=== PATIENT | male | born 1945 | race Caucasian/White ===

== ENCOUNTER 2020-05-16 18:50 | Inpatient (IN) ==
[2020-05-16] MEDS ORDERED: Ipratropium/Albuterol Neb 3 ML IH ONE (19:13)
[2020-05-16 19:39] LABS: Basophils % 0.2 %; Hematocrit 41.5 % (37.5-50.1); Hemoglobin 12.9 g/dL (12.9-16.9); Immature Granulocytes % 0.2 % (0-4); Lymphocytes # 0.7 K/mcL (0.6-4.6); Lymphocytes % 18.2 %; Mean Corpuscular HGB Conc 31.1 g/dL (31.6-35.5); Mean Corpuscular Volume 96.5 fL (83.0-100.0); Monocytes # 0.4 K/mcL (0.0-1.3); Monocytes % 9.2 %; Neutrophils # 2.9 K/mcL (1.6-8.9); Platelet Count 180 K/mcL (140-400); Red Cell Distribution Width 13.9 % (11.5-14.5); Segmented Neutrophils % 72.2 %
[2020-05-16 19:40] LABS: Activated Partial Thrombo Time 27.2 Seconds (26.0-36.0)
[2020-05-16 19:50] LABS: Albumin 3.6 g/dL (3.5-5.7); Albumin/Globulin Ratio 0.9 (1.1-2.2); Bilirubin,Indirect 0.3 mg/dL (0.0-1.0); Bilirubin,Total 0.3 mg/dL (0.3-1.0); Calcium 8.6 mg/dL (8.6-10.3); Globulin 4.1 g/dL (2.4-3.5); Magnesium 1.9 mg/dL (1.6-2.6); Phosphorous 3.3 mg/dL (2.7-4.5); Potassium 4.1 mEq/L (3.5-5.1); Total Protein 7.7 g/dL (6.4-8.9); Troponin I 0.03 ng/mL (< 0.04)
[2020-05-16] MEDS ORDERED: Isovue-370 500 ML BOTTLE IVP ONE (20:23)
[2020-05-16] MEDS ORDERED: Azithromycin 500 MG in 0.9 % Sodium Chloride 250 ML IVPB ONE (22:36)
[2020-05-16] MEDS ORDERED: cefTRIAXone 1,000 MG in Water for inj. (sterile) 10 ML IVP ONE (22:36)
[2020-05-16] MEDS ORDERED: Dexamethasone 4 MG/ML VIAL IVP ONE (23:52)
[2020-05-17] MEDS ORDERED: Ondansetron ODT 4 MG TAB.RAPDIS SL PRN (01:42)
[2020-05-17] MEDS ORDERED: Naloxone 0.4 MG/ML INJ IVP PRN (01:42)
[2020-05-17] MEDS ORDERED: Acetaminophen 325 MG TABLET PO PRN (01:42)
[2020-05-17] MEDS ORDERED: Ipratropium/Albuterol Neb 3 ML IH PRN (01:44)
[2020-05-17 05:09] LABS: Hematocrit 38.2 % (37.5-50.1); Immature Granulocytes % 0.2 % (0-4); Lymphocytes # 0.3 K/mcL (0.6-4.6); Lymphocytes % 6.4 %; Mean Corpuscular HGB Conc 31.4 g/dL (31.6-35.5); Mean Corpuscular Volume 95.5 fL (83.0-100.0); Mean Platelet Volume 10.6 fL (9.4-12.4); Monocytes # 0.1 K/mcL (0.0-1.3); Monocytes % 3.1 %; Neutrophils # 3.8 K/mcL (1.6-8.9); Platelet Count 151 K/mcL (140-400); Red Cell Distribution Width 13.7 % (11.5-14.5); Segmented Neutrophils % 90.3 %; White Blood Count 4.3 K/mcL (4.3-11.1)
[2020-05-17 05:30] LABS: BUN/Creatinine Ratio 18 (6-26); Blood Urea Nitrogen 25 mg/dL (8-23); Calcium 8.2 mg/dL (8.6-10.3); Carbon Dioxide 29 mEq/L (23-29); Chloride 106 mEq/L (98-107); Glucose 119 mg/dL (70-105); Magnesium 1.8 mg/dL (1.6-2.6); Osmolality,Calculated 298 (280-300); Phosphorous 2.7 mg/dL (2.7-4.5); Potassium 3.8 mEq/L (3.5-5.1); Sodium 141 mEq/L (136-145); eGFR For African Americans > 60 (> 60); eGFR For Non-African Americans 51 (> 60)
[2020-05-17] MEDS: *HR* Heparin 5,000 UNIT/ML VIAL SQ SCH ×3 (06:47→20:41)
[2020-05-17] MEDS: dexAMETHasone 4 MG TABLET PO SCH (09:47)
[2020-05-17] MEDS: cefTRIAXone 1,000 MG in 0.9 % Sodium Chloride Mini Bag 100 ML IVPB SCH (09:50)
[2020-05-17] MEDS: CefTRIAXone 1,000 MG VIAL ONE ×2 (10:35→10:37)
[2020-05-17] MEDS ORDERED: Azithromycin 500 MG in 0.9 % Sodium Chloride 250 ML IVPB SCH (18:00)
[2020-05-17] MEDS ORDERED: 0.9 % Sodium Chloride 250 ML ONE (20:14)
[2020-05-17] MEDS: Mirtazapine 15 MG TABLET PO SCH (20:41)
[2020-05-17] MEDS ORDERED: QUEtiapine Fumarate 25 MG TABLET PO SCH ×3 (21:00)
[2020-05-18 00:59] LABS: Hematocrit 37.1 % (37.5-50.1); Hemoglobin 11.5 g/dL (12.9-16.9); Immature Granulocytes % 0.2 % (0-4); Lymphocytes # 0.4 K/mcL (0.6-4.6); Mean Corpuscular Hemoglobin 30.2 pg (28.0-33.3); Mean Corpuscular Volume 97.4 fL (83.0-100.0); Mean Platelet Volume 10.8 fL (9.4-12.4); Monocytes # 0.3 K/mcL (0.0-1.3); Monocytes % 5.8 %; Neutrophils # 5.1 K/mcL (1.6-8.9); Platelet Count 168 K/mcL (140-400); Red Blood Count 3.81 M/mcL (4.19-5.50); Red Cell Distribution Width 13.9 % (11.5-14.5); White Blood Count 5.9 K/mcL (4.3-11.1)
[2020-05-18 01:17] LABS: Alanine Aminotransferase 11 Units/L (7-52); Albumin 3.5 g/dL (3.5-5.7); Albumin/Globulin Ratio 0.9 (1.1-2.2); Alkaline Phosphatase 87 Units/L (34-104); Aspartate Amino Transferase 15 Units/L (13-39); BUN/Creatinine Ratio 29 (6-26); Bilirubin,Total 0.3 mg/dL (0.3-1.0); Blood Urea Nitrogen 36 mg/dL (8-23); Calcium 8.7 mg/dL (8.6-10.3); Carbon Dioxide 32 mEq/L (23-29); Chloride 104 mEq/L (98-107); Globulin 3.7 g/dL (2.4-3.5); Glucose 120 mg/dL (70-105); Osmolality,Calculated 306 (280-300); Potassium 4.2 mEq/L (3.5-5.1); Sodium 143 mEq/L (136-145); Total Protein 7.2 g/dL (6.4-8.9); eGFR For African Americans > 60 (> 60); eGFR For Non-African Americans 57 (> 60)
[2020-05-18] MEDS: *HR* Heparin 5,000 UNIT/ML VIAL SQ SCH ×3 (06:11→20:05)
[2020-05-18] MEDS: dexAMETHasone 4 MG TABLET PO SCH (09:17)
[2020-05-18] MEDS: cefTRIAXone 1,000 MG in 0.9 % Sodium Chloride Mini Bag 100 ML IVPB SCH (09:18)
[2020-05-18] MEDS: hydrALAZINE 25 MG TABLET PO SCH (17:28)
[2020-05-18] MEDS: Mirtazapine 15 MG TABLET PO SCH (20:03)
[2020-05-18] MEDS: Metoprolol 100 MG TABLET PO SCH (20:03)
[2020-05-18] MEDS ORDERED: 0.9 % Sodium Chloride 250 ML ONE (21:20)
[2020-05-19 03:20] LABS: Basophils % 0.2 %; Hematocrit 36.7 % (37.5-50.1); Hemoglobin 11.5 g/dL (12.9-16.9); Immature Granulocytes % 0.3 % (0-4); Lymphocytes # 0.7 K/mcL (0.6-4.6); Lymphocytes % 10.2 %; Mean Corpuscular HGB Conc 31.3 g/dL (31.6-35.5); Mean Corpuscular Hemoglobin 30.2 pg (28.0-33.3); Mean Corpuscular Volume 96.3 fL (83.0-100.0); Mean Platelet Volume 10.6 fL (9.4-12.4); Monocytes # 0.3 K/mcL (0.0-1.3); Monocytes % 4.6 %; Neutrophils # 5.5 K/mcL (1.6-8.9); Platelet Count 185 K/mcL (140-400); Red Blood Count 3.81 M/mcL (4.19-5.50); Red Cell Distribution Width 13.7 % (11.5-14.5); Segmented Neutrophils % 84.7 %; White Blood Count 6.5 K/mcL (4.3-11.1)
[2020-05-19 03:39] LABS: Alanine Aminotransferase 9 Units/L (7-52); Albumin 3.4 g/dL (3.5-5.7); Albumin/Globulin Ratio 0.9 (1.1-2.2); Alkaline Phosphatase 87 Units/L (34-104); Aspartate Amino Transferase 16 Units/L (13-39); BUN/Creatinine Ratio 28 (6-26); Bilirubin,Total 0.3 mg/dL (0.3-1.0); Blood Urea Nitrogen 31 mg/dL (8-23); Calcium 8.6 mg/dL (8.6-10.3); Carbon Dioxide 29 mEq/L (23-29); Chloride 105 mEq/L (98-107); Globulin 3.9 g/dL (2.4-3.5); Glucose 110 mg/dL (70-105); Osmolality,Calculated 301 (280-300); Potassium 3.9 mEq/L (3.5-5.1); Sodium 142 mEq/L (136-145); Total Protein 7.3 g/dL (6.4-8.9); eGFR For African Americans > 60 (> 60); eGFR For Non-African Americans > 60 (> 60)
[2020-05-19] MEDS: *HR* Heparin 5,000 UNIT/ML VIAL SQ SCH ×3 (05:08→21:11)
[2020-05-19] MEDS: hydrALAZINE 25 MG TABLET PO SCH ×2 (09:19→18:09)
[2020-05-19] MEDS: Aspirin Enteric Coated 81 MG Tablet PO SCH (09:19)
[2020-05-19] MEDS: amLODIPine 5 MG TABLET PO SCH (09:20)
[2020-05-19] MEDS: Metoprolol 100 MG TABLET PO SCH ×2 (09:20→20:24)
[2020-05-19] MEDS: dexAMETHasone 4 MG TABLET PO SCH (09:21)
[2020-05-19] MEDS: Mirtazapine 15 MG TABLET PO SCH (21:11)
[2020-05-20] MEDS ORDERED: *HR* Atropine Sulfate 1 MG/10 ML SYRINGE IVP ONE (00:04)
[2020-05-20] MEDS: *HR* Heparin 5,000 UNIT/ML VIAL SQ SCH ×2 (05:33→14:42)
[2020-05-20 05:50] LABS: Hematocrit 39.6 % (37.5-50.1); Hemoglobin 12.1 g/dL (12.9-16.9); Immature Granulocytes % 0.3 % (0-4); Lymphocytes # 0.6 K/mcL (0.6-4.6); Lymphocytes % 16.9 %; Mean Corpuscular HGB Conc 30.6 g/dL (31.6-35.5); Mean Corpuscular Hemoglobin 29.6 pg (28.0-33.3); Mean Corpuscular Volume 96.8 fL (83.0-100.0); Mean Platelet Volume 11.1 fL (9.4-12.4); Monocytes # 0.2 K/mcL (0.0-1.3); Monocytes % 6.9 %; Neutrophils # 2.7 K/mcL (1.6-8.9); Platelet Count 204 K/mcL (140-400); Red Blood Count 4.09 M/mcL (4.19-5.50); Red Cell Distribution Width 13.8 % (11.5-14.5); Segmented Neutrophils % 75.9 %; White Blood Count 3.5 K/mcL (4.3-11.1)
[2020-05-20 06:14] LABS: Alanine Aminotransferase 9 Units/L (7-52); Albumin 3.4 g/dL (3.5-5.7); Albumin/Globulin Ratio 0.9 (1.1-2.2); Alkaline Phosphatase 85 Units/L (34-104); Aspartate Amino Transferase 14 Units/L (13-39); BUN/Creatinine Ratio 34 (6-26); Bilirubin,Total 0.3 mg/dL (0.3-1.0); Blood Urea Nitrogen 43 mg/dL (8-23); Calcium 8.8 mg/dL (8.6-10.3); Carbon Dioxide 31 mEq/L (23-29); Chloride 104 mEq/L (98-107); Glucose 121 mg/dL (70-105); Osmolality,Calculated 304 (280-300); Potassium 3.8 mEq/L (3.5-5.1); Sodium 141 mEq/L (136-145); Total Protein 7.4 g/dL (6.4-8.9); eGFR For African Americans > 60 (> 60); eGFR For Non-African Americans 56 (> 60)
[2020-05-20] MEDS: dexAMETHasone 4 MG TABLET PO SCH (07:53)
[2020-05-20] MEDS: amLODIPine 5 MG TABLET PO SCH (07:53)
[2020-05-20] MEDS: Aspirin Enteric Coated 81 MG Tablet PO SCH (07:54)
[2020-05-20] MEDS: hydrALAZINE 25 MG TABLET PO SCH (07:54)
[2020-05-20] MEDS: Metoprolol 100 MG TABLET PO SCH (07:55)
[2020-05-20 12:21] VITALS: BP 105/58
== END 2020-05-20 14:47 | DRG 177 ==
LOC: CDU 18:50 → EMEROOARM 18:50 → SUATTDRO 05-17 00:43 → CDU 05-17 01:20 → 2NENU 05-18 12:38
PROVIDERS: ADMIT Internal Medicine; ATTEND Family Medicine

== ENCOUNTER 2022-04-05 19:26 | Observation (INO) ==
[2022-04-05 20:12] LABS: Basophils # 0.1 K/mcL (0.0-0.2); Basophils % 1.1 %; Eosinophils # 0.1 K/mcL (0.0-0.6); Eosinophils % 0.9 %; Hematocrit 45.1 % (37.5-50.1); Hemoglobin 13.6 g/dL (12.9-16.9); Immature Granulocytes % 0.2 % (0-4); Lymphocytes # 1.5 K/mcL (0.6-4.6); Lymphocytes % 26.5 %; Mean Corpuscular HGB Conc 30.2 g/dL (31.6-35.5); Mean Corpuscular Hemoglobin 31.1 pg (28.0-33.3); Mean Corpuscular Volume 103.2 fL (83.0-100.0); Mean Platelet Volume 10.1 fL (9.4-12.4); Monocytes # 0.4 K/mcL (0.0-1.3); Monocytes % 6.3 %; Neutrophils # 3.6 K/mcL (1.6-8.9); Platelet Count 305 K/mcL (140-400); Red Blood Count 4.37 M/mcL (4.19-5.50); Red Cell Distribution Width 13.8 % (11.5-14.5); White Blood Count 5.5 K/mcL (4.3-11.1)
[2022-04-05 20:26] LABS: Bacteria,Urine Moderate per hpf (None-Few); Bilirubin,Urine Negative (Negative); Blood,Urine Small (Negative); Clarity,Urine Turbid (Clear); Color,Urine Yellow (Yellow); Glucose,Urine (UA) Normal (Normal); Ketones,Urine Negative (Negative); Leukocyte Esterase,Urine Large (Negative); Mucus,Urine Few per lpf (None-Few); Nitrite,Urine Positive (Negative); PH,Urine 5.5 pH Units (5.0-8.0); Protein,Urine Trace mg/dL (Neg-Trace); Squamous Epithelial Cell,Urine Few per hpf (None-Few); Urobilinogen,Urine Normal (Normal); WBC,Urine 30-50 per hpf (0-3)
[2022-04-05 20:29] LABS: BUN/Creatinine Ratio 38 (6-26); Blood Urea Nitrogen 71 mg/dL (8-23); Calcium 9.8 mg/dL (8.6-10.3); Carbon Dioxide 30 mEq/L (23-29); Chloride 113 mEq/L (98-107); Glucose 206 mg/dL (70-105); Magnesium 2.6 mg/dL (1.6-2.6); Osmolality,Calculated 339 (280-300); Potassium 3.8 mEq/L (3.5-5.1); Sodium 151 mEq/L (136-145)
[2022-04-05 20:30] LABS: Troponin I < 0.03 ng/mL (< 0.04)
[2022-04-05 20:44] LABS: Thyroid Stimulating Hormone 1.439 mcIU/mL (0.340-5.600)
[2022-04-05] MEDS ORDERED: cefTRIAXone 1,000 MG in 0.9 % Sodium Chloride 10 ML IVP ONE (22:44)
[2022-04-05] MEDS ORDERED: 0.9 % Sodium Chloride 1,000 ML IVC ONE (23:25)
[2022-04-05] MEDS ORDERED: Ondansetron 4 MG/2 ML VIAL IVP PRN (23:26)
[2022-04-05] MEDS ORDERED: Acetaminophen 325 MG TABLET PO PRN (23:26)
[2022-04-05] MEDS ORDERED: Naloxone 0.4 MG/ML INJ IVP PRN (23:26)
[2022-04-05] MEDS ORDERED: *HR* Dextrose 50 % in Water (Syg) 50 ML SYRINGE IVP PRN (23:31)
[2022-04-05] MEDS ORDERED: Dextrose Gel 15 GM/37.5 ML TUBE PO PRN ×2 (23:31)
[2022-04-05] MEDS ORDERED: D5% in Water 1,000 ML IVC PRN (23:31)
[2022-04-06] MEDS: Insulin LISPRO 300 UNITS/3 ML VIAL SUBQ SCH ×4 (00:47→16:52)
[2022-04-06] MEDS ORDERED: Haloperidol Lactate 5 MG/ML VIAL IVP ONE (02:59)
[2022-04-06 03:55] LABS: Basophils % 0.6 %; Eosinophils # 0.1 K/mcL (0.0-0.6); Eosinophils % 1.7 %; Hematocrit 42.1 % (37.5-50.1); Hemoglobin 12.9 g/dL (12.9-16.9); Immature Granulocytes % 0.3 % (0-4); Lymphocytes % 30.5 %; Mean Corpuscular HGB Conc 30.6 g/dL (31.6-35.5); Mean Corpuscular Volume 101.2 fL (83.0-100.0); Mean Platelet Volume 10.2 fL (9.4-12.4); Monocytes # 0.4 K/mcL (0.0-1.3); Monocytes % 5.6 %; Neutrophils # 4.1 K/mcL (1.6-8.9); Platelet Count 294 K/mcL (140-400); Red Blood Count 4.16 M/mcL (4.19-5.50); Red Cell Distribution Width 13.7 % (11.5-14.5); Segmented Neutrophils % 61.3 %; White Blood Count 6.7 K/mcL (4.3-11.1)
[2022-04-06 04:02] LABS: INR 1.1; Prothrombin Time 12.5 Seconds (9.4-12.1)
[2022-04-06 04:14] LABS: Albumin 3.8 g/dL (3.5-5.7); Bilirubin,Direct 0.1 mg/dL (0.0-0.2); Bilirubin,Indirect 0.2 mg/dL (0.0-1.0); Bilirubin,Total 0.3 mg/dL (0.3-1.0); Calcium 9.2 mg/dL (8.6-10.3); Magnesium 2.5 mg/dL (1.6-2.6); Phosphorous 3.5 mg/dL (2.7-4.5); Total Protein 7.8 g/dL (6.4-8.9)
[2022-04-06] MEDS: Levothyroxine 25 MCG TABLET PO SCH (05:51)
[2022-04-06] MEDS: D5% in 0.45% NACL 1,000 ML IVC SCH ×3 (06:42→22:11)
[2022-04-06] MEDS: cefTRIAXone 1,000 MG in 0.9 % Sodium Chloride Mini Bag 100 ML IVPB SCH (10:27)
[2022-04-06] MEDS: QUEtiapine Fumarate 25 MG TABLET PO SCH ×2 (10:29→10:34)
[2022-04-06] MEDS: Aspirin Enteric Coated 81 MG Tablet PO SCH ×2 (10:29→10:34)
[2022-04-06 16:10] LABS: Calcium 8.9 mg/dL (8.6-10.3); Potassium 4.2 mEq/L (3.5-5.1)
[2022-04-06] MEDS ORDERED: Mirtazapine 15 MG TABLET PO SCH (21:00)
[2022-04-06] MEDS ORDERED: QUEtiapine Fumarate 25 MG TABLET PO SCH (21:00)
[2022-04-06 21:44] LABS: Potassium 3.9 mEq/L (3.5-5.1)
[2022-04-07] MEDS: Levothyroxine 25 MCG TABLET PO SCH (05:30)
[2022-04-07] MEDS: Insulin LISPRO 300 UNITS/3 ML VIAL SUBQ SCH ×3 (08:20→16:29)
[2022-04-07] MEDS: Aspirin Enteric Coated 81 MG Tablet PO SCH (08:47)
[2022-04-07] MEDS: cefTRIAXone 1,000 MG in 0.9 % Sodium Chloride Mini Bag 100 ML IVPB SCH (08:47)
[2022-04-07] MEDS: QUEtiapine Fumarate 25 MG TABLET PO SCH (08:47)
[2022-04-07] MEDS: D5% in 0.45% NACL 1,000 ML IVC SCH ×3 (08:48→16:30)
[2022-04-07 13:22] LABS: Calcium 8.8 mg/dL (8.6-10.3); Potassium 3.8 mEq/L (3.5-5.1)
[2022-04-07 15:13] LABS: Adenovirus Not Detected (Not Detect); Bordetella Pertussis Not Detected (Not Detect); Chlamydophila pneumoniae Not Detected (Not Detect); Coronavirus 229E Not Detected (Not Detect); Coronavirus HKU1 Not Detected (Not Detect); Coronavirus NL63 Not Detected (Not Detect); Coronavirus OC43 Not Detected (Not Detect); Human Metapneumovirus Not Detected (Not Detect); Human Rhinovirus/Enterovirus Not Detected (Not Detect); Influenza A Subtype 2009 H1 Not Detected (Not Detect); Influenza B Not Detected (Not Detect); Mycoplasma pneumoniae Not Detected (Not Detect); Parainfluenza Virus 1 Not Detected (Not Detect); Parainfluenza Virus 2 Not Detected (Not Detect); Parainfluenza Virus 3 Not Detected (Not Detect); Parainfluenza Virus 4 Not Detected (Not Detect); Respiratory Syncytial Virus Not Detected (Not Detect); SARS-CoV-2 Not Detected (Not Detect)
[2022-04-07 18:37] VITALS: BP 114/64; PULSE 75; TEMP 98.1; O2SAT 91
== END 2022-04-07 23:30 ==
LOC: 3ANU 19:26 → EMEROOARM 19:26 → SUATTDRO 23:08 → 3BNU 23:32
PROVIDERS: ADMIT Internal Medicine; ATTEND Registered Nurse